=== PATIENT | female | born 1965 | race Hispanic/Latino ===

== ENCOUNTER 2017-08-05 21:31 | Emergency (ER) | payer OTHER ==
[2017-08-05 21:41] VITALS: BP 133/82; PULSE 73; RESP 16; TEMP 97.8; O2SAT 100
[2017-08-05] MEDS ORDERED: Tdap Vaccine 0.5 ml Vial (10-64 yrs) IM ONE ×2 (22:11→22:30)
--- NOTE | 2017-08-05 22:33 | ED PDOC ---
Upper Extremity Pain/Injury Time Seen by Provider: 08/05/17 21:47 Chief Complaint (Nursing): Abnormal Skin Integrity History Per: Patient History/Exam Limitations: no limitations Additional Complaint(s): 51-year-old female complaining of a laceration to her left third digit which she sustained after she was trying to cut an avocado. Reports no decrease in range of motion, numbness, or any other injury. Has no additional complaints. Past Medical History Vital Signs: Last Vital Signs Temp 97.8 F 08/05/17 21:38 Pulse 73 08/05/17 21:38 Resp 16 08/05/17 21:38 BP 133/82 08/05/17 21:38 Pulse Ox 100 08/05/17 21:38 - Family History Family History: States: No Known Family Hx - Immunization History Hx Tetanus Toxoid Vaccination: No (Not up-to-date) - Allergies Allergies/Adverse Reactions: Allergies Allergy/AdvReac Type Severity Reaction Status Date / Time No Known Allergies Allergy Verified 08/05/17 21:38 Review of Systems Constitutional: Negative for: Fever, Malaise Musculoskeletal: Negative for: Neck Pain, Back Pain Skin: Positive for: Other (Laceration left third digit). Negative for: Rash, Lesions Physical Exam - Physical Exam Comments: GENERAL APPEARANCE: Patient is awake, alert, oriented x 3, in mild painful distress. SKIN: Warm, (-) rash, (-) lesions. (+) 2 cm laceration to the volar aspect of the L 3rd digit. UPPER EXTREMITY: (-) Tenderness, (-) swelling, (-) ecchymosis, (-) crepitus, (- ) deformity. Tendon function intact, (-) distal neurovascular deficit, 2 point discrimination intact. Remainder of hand, digits and wrist: (-) injury. - ECG O2 Sat by Pulse Oximetry: 100 Medical Decision Making Medical Decision Making: Impression : L 3rd digit laceration Plan : - Dermabond - Tdap IM Wound irrigated. Laceration repair performed by LIZZ. The patient tolerated the procedure well. Clean dressing applied. Advised to follow up with primary care physician in 1-2 days without fail. Advised to keep wound dry, avoid getting dermabond wet. Return to the emergency room at any time for any new or worsening symptoms. Patient states she fully agrees with and understands discharge instructions. States that she agrees with the plan and disposition. Verbalized and repeated discharge instructions and plan. I have given the patient opportunity to ask any additional questions. Disposition - Clinical Impression Clinical Impression: Finger laceration - Patient ED Disposition Is Patient to be Admitted: No Counseled Patient/Family Regarding: Diagnosis, Need For Followup - Disposition Disposition: Routine/Home Disposition Time: 22:30 Condition: STABLE Additional Instructions: Thank you for letting us take care of you today. You were treated for left third digit laceration. The emergency medical care you received today was directed at your acute symptoms. Keep wound dry, avoid getting dermabond wet. It may take several days for your symptoms to resolve. Return to the Emergency Department if your symptoms worsen, do not improve, or if you have any other problems. Please contact your doctor in 2 days for re-evaluation and follow up. Bring any paperwork you were given at discharge with you along with any medications you are taking to your follow up visit. Our treatment cannot replace ongoing medical care by a primary care provider (PCP) outside of the emergency department. Thank you for allowing the [facility] team to be part of your care today. 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
== END 2017-08-05 23:38 | disposition home or self-care (01) ==
LOC: H.ER 21:31
DX: S61.213A Laceration without foreign body of left middle finger without damage to nail, initial encounter (principal); W26.0XXA Contact with knife, initial encounter; Y92.89 Other specified places as the place of occurrence of the external cause